=== PATIENT | male | born 1960 | race Caucasian/White ===

== ENCOUNTER 2022-10-09 08:51 | Day surgery (SDC) | payer OTHER, SELFPAY ==
[2022-10-09] VITALS (7 sets, daily range): BP systolic 101–164; BP diastolic 68–118; PULSE 85–120; RESP 14–17; TEMP 36.4–36.6; O2SAT 93–99; BMI 21.6
--- NOTE | 2022-10-09 09:10 | P.HP_ITS ---
History of Present Illness History of Present Illness Date Patient Seen: 10/09/22 Chief complaint: Dx Colonoscopy Narrative: Abdominal discomfort with history of diverticulitis. Need for colorectal cancer screening FOR[facility] Medical History (Updated 10/09/22 @ 09:05 by Riki Morel RN) Constipation Diverticulosis Hemorrhoids History of diverticulitis HTN (hypertension) Meds Home Medications and Allergies Home Medications Medication Instructions Recorded Confirmed Type losartan 25 mg tablet 25 mg PO DAILY 10/09/22 10/09/22 History Allergies Allergy/AdvReac Type Severity Reaction Status Date / Time ciprofloxacin [From Cipro] AdvReac Unknown hyperanxious Verified 10/09/22 09:03 nerves metronidazole [From Flagyl] AdvReac Unknown hyperanxious Verified 10/09/22 09:03 nerves Exam Narrative Exam Narrative: Oropharynx free of lesions Chest clear to auscultation percussion Cardiac exam reveals no S3 or murmur Assessment & Plan Assessment & Plan narrative: Abdominal discomfort and need for colorectal cancer screening. Risks, benefits, alternatives have been explained.
--- NOTE | 2022-10-09 09:11 | P.OP.COLON_ITS ---
Operative Date/Time/Diagnoses Date of procedure: 10/09/22 Pre-op diagnosis: See indication and findings Procedure & Clinicians Study performed: Colonoscopy Indications: Abdominal pain need for colorectal cancer screening Surgeon: Nik Saenz Procedure Notes Procedure in detail: After informed consent was obtained the patient was placed in left lateral decubitus position. The video colonoscope was introduced the rectum slowly advanced cecum. Preparation was good. On slow withdrawal mucosa was carefully examined. The scope was removed. The patient tolerated procedure well. Blood loss none Complications none Sedation mac Findings 1. [place] colonic anastomosis at 20 cm. Appears to be side to side. Normal appearance. 2. Colonic ulcer measuring 4 mm with some surrounding inflammation at 25 cm. Gentle biopsies were taken. 3. Otherwise negative colonoscopy to cecum. Jovany is having minimal discomfort and I would just like to wait for pathology to return particularly given his allergy to Cipro and Flagyl.
[2022-10-09] MEDS: LACTATED RINGERS 1,000 ML 42 ML IV (09:19)
--- NOTE | 2022-10-09 10:20 | PM.OP.COLON ---
Operative Date/Time/Diagnoses Date of procedure: 10/09/22 Pre-op diagnosis: See indication and findings Procedure & Clinicians Study performed: Colonoscopy Indications: History of diverticulitis with recurrent abdominal pain. Need for colorectal cancer screening Surgeon: Nik Saenz Procedure Notes Procedure in detail: After informed consent was obtained the patient was placed in left lateral decubitus position. The video colonoscope was introduced the rectum slowly advanced cecum. Preparation was good. On slow withdrawal mucosa was carefully examined. The scope was removed. The patient tolerated procedure well. Blood loss none Complications none Sedation mac Findings 1. Pancolonic diverticulosis 2. Otherwise negative colonoscopy to cecum Patient should have follow-up colonoscopy in 10 years.
== END 2022-10-09 10:40 | disposition home or self-care (01) ==
PROVIDERS: PCP Physician Assistant Medical; Referring Provider Physician Assistant Medical; Visit Provider Internal Medicine Gastroenterology
PROC: 0DJD8ZZ Inspection of Lower Intestinal Tract, Via Natural or Artificial Opening Endoscopic (ICD-10-PCS; CPT 45378; principal; 2022-10-09 10:00)
DX: K62.5 Hemorrhage of anus and rectum (principal); R10.9 Unspecified abdominal pain; Z87.19 Personal history of other diseases of the digestive system; K57.30 Diverticulosis of large intestine without perforation or abscess without bleeding
CPT/HCPCS: 45378; J2704